=== PATIENT | male | born 1980 | race Caucasian/White ===

== ENCOUNTER → 2020-06-11 08:41 | Outpatient (CLI) | payer OTHER ==
--- NOTE | 2020-06-13 13:38 | EC ---
PATIENT:JOSÉ MIGUEL MCHUGH DATE OF SERVICE: 06/11/20 SEX: M MEDICAL RECORD: [id number] DATE OF : 78 LOCATION:[facility] [place] AGE OF PATIENT: 40 ADMISSION DATE: 06/11/20 REFERRING PHYSICIAN: INTERPRETING PHYSICIAN: SHIELA PRICE MD ECHOCARDIOGRAM REPORT ECHO CHARGES 4 ECHO COMPLETE Date: 06/11/20 CLINICAL DIAGNOSIS: EDEMA ECHOCARDIOGRAPHIC MEASUREMENTS (adult normal given) AC root (d.<3.7cm) 2.8 cm LV Septum d (<1.2 cm> 0.7 cm Valve Excursion 1.8 cm LV Septum (systole) 1.2 cm Left Atria (s.<4.0cm> 4.0 cm LVPW d(<1.2cm) 0.7 cm RV (d.<2.3cm) 2.5 cm LVPW (sytole) 0.8 cm LV diastole(<5.6CM) 6.0 cm MV E-F(>70mm/sec) cm LV systole 4.6 cm LVOT Diameter 1.9 cm MV exc.(>10mm) 1.7 cm Est.ejection fraction (50-75%) % DOPPLER: LVIT cm/sec A 85 cm/sec E 101 cm/sec LA cm/sec RVSP 26 mmHg LVOT 131 cm/sec AOP1/2T m/s Asc. Ao 150 cm/sec RVOT 66 cm/sec RA cm/sec PA 94 cm/sec AV Gradient Peak 9.0 mmHg AV Mean 4.9 mmHg AV Area 2.6 cm MV Gradient Peak 4.1 mmHg MV Mean 2.0 mmHg MV Area cm COMMENTS: Signal Technician: Courtney [facility] Helmet Binder: [address] Dr. [place] TAPE# Pericardial Effusion N DATE OF SERVICE: Adequate 2D, color flow imaging, spectral Doppler, and M-Mode. FINDINGS: No LVH. LV internal dimensions normal. Wall motion is normal. EF greater than or equal to 55%. Aortic valve is tricuspid. No evidence of stenosis by Doppler interrogation. Left atrium normal at 4.0 cm. Mitral valve shows no prolapse. Trace MR. Right-sided chambers are grossly normal. Trace TR. ECHOCARDIOGRAM REPORT [id number] JOSÉ MIGUEL MCHUGH TRANSINT:[id number] Voice Confirmation ID: [id number] DOCUMENT ID: [id number] SHIELA PRICE MD at 1338 CC: [id number] DICTATION DATE: 06/12/20 1550 DIRECTOR OF SEARCH ENGINE MARKETING: 06/12/202041 DEP CLI 06/11/20 [id number] [place] [address]
== END | disposition home or self-care (01) ==
LOC: D.ECHO 08:41
PROVIDERS: ATTEND Family Medicine
DX: R60.0 Localized edema (principal)